=== PATIENT | male | born 1955 | race Caucasian/White ===

== ENCOUNTER 2018-03-26 08:00 | Outpatient (CLI) | payer MEDICARE | END 2018-03-26 08:01 | LOC: LAB.R 08:00 | PROVIDERS: ATTEND Dentist Oral and Maxillofacial Surgery | DX: R68.84 Jaw pain (principal) | CPT/HCPCS: 81599; 87070; 87077; 87186 ==

== ENCOUNTER 2018-05-14 09:10 | Outpatient (CLI) | payer MEDICARE | END 2018-05-14 09:11 | disposition home or self-care (01) | LOC: LAB.R 09:10 | PROVIDERS: ATTEND Dentist Oral and Maxillofacial Surgery | DX: M27.2 Inflammatory conditions of jaws (principal) ==

== ENCOUNTER 2018-05-20 06:02 | Day surgery (SDC) | payer MEDICARE ==
[2018-05-20] MEDS ORDERED: ERTAPENEM 1 GM in SODIUM CHLORIDE 0.9% MINIBAG 100 ML IV ONE ×2 (06:03→09:10)
--- NOTE | 2018-05-20 08:25 | XRAY Report ---
Procedure Date: 05/20/2018 Accession Number: [id number] / [id number] Procedure: XR - Chest for Line Placement CPT Code: FULL RESULT: EXAM: Chest for Line Placement DATE: 05/20/2018 8:22 AM CLINICAL HISTORY: post line placement COMPARISON: None. TECHNIQUE: Single view of the chest. FINDINGS: Lungs/Pleura: No focal opacities evident. No pneumothorax or pleural effusion. Mediastinum: Within exam limitations, cardiomediastinal contour is normal. Other: Right arm PICC terminates in the right atrium, approximately 4 cm past the cavoatrial junction. IMPRESSION: Right arm PICC terminating in the right atrium, approximately 4 cm past the cavoatrial junction. [facility]
--- NOTE | 2018-05-20 08:55 | XRAY Report ---
Procedure Date: 05/20/2018 Accession Number: [id number] / [id number] Procedure: XR - Chest for Line Placement CPT Code: FULL RESULT: EXAM: Chest for Line Placement DATE: 05/20/2018 8:52 AM CLINICAL HISTORY: post line placement adjustment COMPARISON: [id number] hours TECHNIQUE: Single view of the chest. FINDINGS: Lungs/Pleura: No focal opacities evident. No pneumothorax or pleural effusion. Mediastinum: Within exam limitations, cardiomediastinal contour is normal. Other: Right arm PICC now terminates at the cavoatrial junction. IMPRESSION: Right arm PICC terminating at the cavoatrial junction. [facility]
[2018-05-20 09:20] VITALS: BP 134/71
== END 2018-05-20 06:03 | disposition home or self-care (01) ==
LOC: SDS 06:02
PROVIDERS: ATTEND Nurse Anesthetist, Certified Registered
PROC: 02HV33Z Insertion of Infusion Device into Superior Vena Cava, Percutaneous Approach (ICD-10-PCS; principal; 2018-05-20 07:30)
DX: M27.2 Inflammatory conditions of jaws (principal)
CPT/HCPCS: 36569; C1751; J1335; 71045